=== PATIENT | female | born 1960 | race Caucasian/White ===

== ENCOUNTER 2022-06-17 06:45 | Day surgery (SDC) | payer BC ==
[2022-06-16 10:22] VITALS: BMI 25.7
[2022-06-17] MEDS ORDERED: Oxymetazoline HCl 0.05% (30 ML BOT) ONE ×2 (07:31→07:56)
[2022-06-17] MEDS ORDERED: Bacitracin Zinc Ointment 30 gm TUBE ONE (07:56)
[2022-06-17] MEDS ORDERED: Lidocaine 1% (PF) 30 ML VIAL ONE (07:56)
[2022-06-17] MEDS ORDERED: EPINEPHrine 1 MG/ML AMP ONE (07:56)
[2022-06-17] MEDS ORDERED: Fentanyl 250 MCG/5 ML VIAL ONE (07:58)
[2022-06-17] MEDS ORDERED: Ondansetron PF 4 MG/2 ML Vial ONE (08:30)
[2022-06-17] MEDS ORDERED: Succinylcholine Chloride 100 MG/5 ML SYRINGE FS ONE (08:30)
[2022-06-17] MEDS ORDERED: Dexamethasone 20 MG/5 ML VIAL ONE (08:30)
[2022-06-17] MEDS ORDERED: Lidocaine 1% PF 5 ML VIAL ONE (08:30)
[2022-06-17] MEDS ORDERED: Rocuronium Bromide 10 MG/ML (10ML VIAL) ONE (08:30)
[2022-06-17] MEDS ORDERED: PROPOFOL 200 MG/20 ML VIAL ONE (08:30)
[2022-06-17] MEDS ORDERED: Fentanyl 100 MCG/2 ML VIAL ONE (09:16)
== END 2022-06-17 10:34 | disposition home or self-care (01) ==
LOC: SDC 06:45
PROVIDERS: ATTEND Otolaryngology Plastic Surgery within the Head & Neck
PROC: 095L0ZZ Destruction of Nasal Turbinate, Open Approach (ICD-10-PCS; principal; 2022-06-17)
PROC: 0NSB34Z Reposition Nasal Bone with Internal Fixation Device, Percutaneous Approach (ICD-10-PCS; principal; 2022-06-17)
PROC: 09SM0ZZ Reposition Nasal Septum, Open Approach (ICD-10-PCS; principal; 2022-06-17)
DX: S02.2XXA Fracture of nasal bones, initial encounter for closed fracture (principal); J34.2 Deviated nasal septum; J34.3 Hypertrophy of nasal turbinates; J34.89 Other specified disorders of nose and nasal sinuses; E03.9 Hypothyroidism, unspecified; E78.00 Pure hypercholesterolemia, unspecified; J30.9 Allergic rhinitis, unspecified; Z79.890 Hormone replacement therapy; Z79.899 Other long term (current) drug therapy; Z88.0 Allergy status to penicillin; Z88.2 Allergy status to sulfonamides; Z91.040 Latex allergy status; W19.XXXA Unspecified fall, initial encounter; Y92.009 Unspecified place in unspecified non-institutional (private) residence as the place of occurrence of the external cause
CPT/HCPCS: J0171; J1100; J2001; J2405; J2704; J3010

== ENCOUNTER 2022-09-07 15:37 | Outpatient (CLI) | payer BC | END 2022-09-07 15:38 | disposition home or self-care (01) | LOC: LABBT 15:37 | PROVIDERS: ATTEND Otolaryngology Plastic Surgery within the Head & Neck | DX: Z01.818 Encounter for other preprocedural examination (principal); S02.2XXA Fracture of nasal bones, initial encounter for closed fracture | CPT/HCPCS: 85014; 93005; 93010 ==

== ENCOUNTER 2022-09-09 08:22 | Day surgery (SDC) | payer BC ==
[2022-09-09] MEDS ORDERED: Oxymetazoline HCl 0.05% (30 ML BOT) ONE ×2 (11:01→11:10)
[2022-09-09] MEDS ORDERED: Lidocaine 1% (PF) 30 ML VIAL ONE (11:10)
[2022-09-09] MEDS ORDERED: EPINEPHrine 1 MG/ML AMP ONE (11:10)
[2022-09-09] MEDS ORDERED: fentaNYL 50 mcg/mL 1 mL Vial ONE ×4 (11:16→13:01)
[2022-09-09] MEDS ORDERED: PROPOFOL 200 MG/20 ML VIAL ONE (11:41)
[2022-09-09] MEDS ORDERED: Ondansetron PF 4 MG/2 ML Vial ONE (11:41)
[2022-09-09] MEDS ORDERED: Ketorolac Tromethamine 30 MG/ML VIAL ONE (11:41)
[2022-09-09] MEDS ORDERED: Dexamethasone 20 MG/5 ML VIAL ONE (11:41)
[2022-09-09] MEDS ORDERED: Bacitracin Zinc Ointment 30 gm TUBE ONE (11:45)
== END 2022-09-09 14:15 | disposition home or self-care (01) ==
LOC: SDC 08:22
PROVIDERS: ATTEND Otolaryngology Plastic Surgery within the Head & Neck
PROC: 0NSB3ZZ Reposition Nasal Bone, Percutaneous Approach (ICD-10-PCS; principal; 2022-09-09)
DX: S02.2XXA Fracture of nasal bones, initial encounter for closed fracture (principal); J20.9 Acute bronchitis, unspecified; E78.00 Pure hypercholesterolemia, unspecified; Z79.890 Hormone replacement therapy; Z79.899 Other long term (current) drug therapy; Z88.0 Allergy status to penicillin; Z88.2 Allergy status to sulfonamides; Z91.040 Latex allergy status; X58.XXXA Exposure to other specified factors, initial encounter
CPT/HCPCS: J0171; J1100; J1885; J2001; J2405; J2704; J3010